=== PATIENT | male | born 1980 | race Caucasian/White ===

== ENCOUNTER 2018-02-01 18:10 | Emergency (ER) | payer BC ==
[2018-02-01] MEDS ORDERED: HYDROmorphone 1 MG/ML Syringe IVPUSH ONE (18:19)
[2018-02-01] MEDS ORDERED: Sodium Chloride 0.9% 10 ML Syringe FLUSH PRN (18:19)
[2018-02-01] MEDS ORDERED: Ondansetron 4 MG/2 ML SDV IVPUSH ONE (18:19)
--- NOTE | 2018-02-01 18:43 | EDM.PDOC ---
ED HPI GENERAL MEDICAL PROBLEM - General Chief Complaint: Trauma Stated Complaint: HORSE BACK RIDING ACCIDENT Time Seen by Provider: 02/01/18 18:12 Source of Information: Reports: Patient History Limitations: Reports: No Limitations - History of Present Illness INITIAL COMMENTS - FREE TEXT/NARRATIVE: 37-year-old male presents for evaluation and treatment of injuries sustained from a horseback riding accident. Patient reports he was riding horse. Estimates he is going about 35-40 miles per hour. Reports that the horse turned suddenly. States that he went down with the horse and the horse landed onto his left leg. He is unsure if he hit his head but he doesn't abrasion to his forehead. Does not believe he lost consciousness. Denies any headaches, epistaxis, loose teeth, neck pain, chest pain, shortness of breath, abdominal pain, syncope, pain in the arms or pelvis. He states he felt lightheaded initially but this is mostly resolved. He reports he was feeling nauseous but has not vomited. Trauma alert minor called upon arrival to the ED. Onset: Today Location: Reports: Lower Extremity, Left Left Lower Leg Pain Score (Numeric/FACES): 10 - Related Data Allergies Allergy/AdvReac Type Severity Reaction Status Date / Time No Known Allergies Allergy Verified 02/01/18 18:19 Home Meds: Home Meds . [No Known Home Meds] 02/01/18 [History] Past Medical History - Past Health History Medical/Surgical History: Denies Medical/Surgical History - Past Surgical History Musculoskeletal Surgical History: Reports: Arthroscopic Knee Social & Family History - Family History Family Medical History: Noncontributory - Tobacco Use Smoking Status *Q: Current Some Day Smoker Years of Tobacco use: 20 Packs/Tins Daily: 0 - Recreational Drug Use Recreational Drug Use: No Review of Systems - Review of Systems Review Of Systems: See Below Nose: Denies: Epistaxis Mouth/Throat: Denies: Loose Teeth Respiratory: Denies: Shortness of Breath Cardiovascular: Denies: Chest Pain GI/Abdominal: Reports: Nausea. Denies: Abdominal Pain, Vomiting Musculoskeletal: Reports: Leg Pain (left, primarilty to the left lwoer leg but radiates into the foot and up into the femur). Denies: Neck Pain, Arm Pain, Back Pain Neurological: Denies: Syncope ED EXAM, GENERAL - Physical Exam Exam: See Below Exam Limited By: No Limitations General Appearance: Alert, WD/WN, Moderate Distress Eye Exam: Bilateral Eye: EOMI, Normal Inspection, PERRL Ears: Normal External Exam, Normal Canal, Hearing Grossly Normal, Normal TMs Nose: Normal Inspection, No Blood Throat/Mouth: Normal Inspection, Normal Lips, Normal Oropharynx, Normal Voice, No Airway Compromise Head: Normocephalic, Other (abrasion to the left forhead about 7cm in diameter) Neck: Normal Inspection, Supple, Non-Tender, Full Range of Motion Respiratory/Chest: No Respiratory Distress, Lungs Clear, Normal Breath Sounds, Chest Non-Tender Cardiovascular: Normal Peripheral Pulses, Regular Rate, Rhythm, No Murmur Peripheral Pulses: 2+: Radial (L), Radial (R), Posterior Tibial (L), Posterior Tibial (R), Dorsalis Pedis (L), Dorsalis Pedis (R) GI/Abdominal: Normal Bowel Sounds, Soft, Non-Tender, No Distention, Pelvis Stable Back Exam: Normal Inspection. No: Vertebral Tenderness Extremities: Normal Inspection, Other (tenderness to the distal left lower leg) Neurological: Alert, Oriented, Normal Cognition Psychiatric: Normal Affect, Normal Mood Skin Exam: Warm, Dry, Normal Color, Wound/Incision (approximately 7cm abrasion to the left forehead) ED TRAUMA PROCEDURES - Splinting Left Lower Extremity Splint Site: lower leg Pre-Procedure NV Status: Normal Post-Procedure NV Status: Normal Splint Material: Other (orthoglass) Splint Design: Posterior Applied & Form Fitted By: Provider, Nurse Provider Post-Splint Application NV Check: NV Status Normal, Good Position Complications: No Course - Vital Signs Last Recorded V/S: Last Vital Signs Temp 97.6 F 02/01/18 18:14 Pulse 89 02/01/18 18:14 Resp 22 H 02/01/18 18:14 BP 133/63 02/01/18 18:14 Pulse Ox 100 02/01/18 18:14 - Orders/Labs/Meds Orders: Active Orders 24 hr Category Date Time Status Peripheral IV Care [RC] . DIRECTED Care 02/01/18 18:19 Active Ankle Min 3V Lt [CR] Stat Exams 02/01/18 18:19 Taken Femur Min 2V Lt [CR] Stat Exams 02/01/18 18:19 Taken Foot 2V Lt [CR] Stat Exams 02/01/18 18:19 Ordered Head wo Cont [CT] Stat Exams 02/01/18 18:19 Taken Tibia Fibula Lt [CR] Stat Exams 02/01/18 18:19 Ordered Peripheral IV Insertion Adult [OM.PC] Routine Oth 02/01/18 18:18 Ordered Meds: Medications Discontinued Medications Generic Name Dose Route Start Last Admin Trade Name Freq PRN Reason Stop Dose Admin Hydromorphone HCl 1 mg 02/01/18 18:19 02/01/18 18:27 Dilaudid IVPUSH 02/01/18 18:20 1 mg ONETIME ONE Administration Hydromorphone HCl 0.5 mg 02/01/18 19:32 02/01/18 19:41 Dilaudid IVPUSH 02/01/18 19:33 0.5 mg ONETIME ONE Administration Ondansetron HCl 4 mg 02/01/18 18:19 02/01/18 18:26 Zofran IVPUSH 02/01/18 18:20 4 mg ONETIME ONE Administration Sodium Chloride 10 ml 02/01/18 18:19 02/01/18 18:26 Saline Flush FLUSH 10 ml ASDIRECTED PRN Administration Keep Vein Open - Radiology Interpretation Free Text/Narrative:: CT of the head without contrast impression per [facility]: No acute findings. Xray of the left femur, tib/fib, ankle and foot shows a nondisplaced comminuted fractures of the left fibula. - Re-Assessments/Exams Free Text/Narrative Re-Assessment/Exam: 02/01/18 20:48 Dr. Campbell has seen the patient and agreed with the workup of this was a trauma alert minor, seen around 18:40. I reviewed the imaging with the patient. We will put him in a posterior slab splint and have him follow-up with orthopedics. I did educate him that he is at risk for compartment syndrome given the crush injury. He was educated on signs to watch for. Rx for Percocet given for instymeds. Discharge instructions as documented. Departure - Departure Time of Disposition: 20:59 Disposition: Home, Self-Care 01 Condition: Fair Clinical Impression: Fibula fracture - Discharge Information *PRESCRIPTION DRUG MONITORING PROGRAM REVIEWED*: No *COPY OF PRESCRIPTION DRUG MONITORING REPORT IN PATIENT ADE: No Instructions: Cast or Splint Care, Adult, [id number], Fibular Ankle Fracture Treated With or Without Immobilization, Adult Referrals: PCP,None [Primary Care Provider] - Alex Loco MD [Physician] - Forms: ED Department Discharge Additional Instructions: Rx for percocoet 5-325 1-2 tabs PO every 4-6 hours prn pain #20 given through instymeds Ice and elevate the lower leg as much as possible. You were given medication the ER that affects your ability to drive and operate machinery. Do not drive or operate machinery within 10 hours of taking prescription narcotic pain. Percocet 1 or 2 tabs every 4-6 hours as needed for pain. Percocet is habit- forming, take as little as needed to control your pain Do not drive or operate within 10 hours of taking Percocet. Wear the splint at all times. Keep covered when around water. Use crutches at all times. Follow-up with Dr. Loco. Call Friday to schedule an appointment with him. Call [phone] to schedule with him. Please return to the ER if your symptoms change or worsen. In particular we would like to see you for sever pain not relieved by pain medication, pallor to the extremity, loss of sensation or any other concerning symptoms. - My Orders Last 24 Hours: My Active Orders 02/01/18 18:18 Peripheral IV Insertion Adult [OM.PC] Routine 02/01/18 18:19 Peripheral IV Care [RC] . DIRECTED Ankle Min 3V Lt [CR] Stat Femur Min 2V Lt [CR] Stat Foot 2V Lt [CR] Stat Head wo Cont [CT] Stat Tibia Fibula Lt [CR] Stat - Assessment/Plan Last 24 Hours: My Active Orders 02/01/18 18:18 Peripheral IV Insertion Adult [OM.PC] Routine 02/01/18 18:19 Peripheral IV Care [RC] . DIRECTED Ankle Min 3V Lt [CR] Stat Femur Min 2V Lt [CR] Stat Foot 2V Lt [CR] Stat Head wo Cont [CT] Stat Tibia Fibula Lt [CR] Stat
[2018-02-01] MEDS ORDERED: HYDROmorphone 0.5 MG/0.5 ML SYRINGE IVPUSH ONE (19:32)
--- NOTE | 2018-02-02 07:30 | CR ---
Left ankle: Four views of the left ankle were obtained. Comparison: No prior study. Fracture is identified within the distal fibular shaft with no significant displacement. Calcifications are seen off the inferior fibula compatible with old injury. Soft tissue swelling is noted. No distal tibial fracture is seen. Impression: 1. Nondisplaced distal fibular shaft fracture. 2. Soft tissue swelling and other incidental findings. Diagnostic code #3
--- NOTE | 2018-02-05 09:15 | CT ---
Head CT Technique: Multiple axial sections through the brain were obtained. Intravenous contrast was not utilized. Comparison: No prior intracranial imaging is available. Findings: Ventricles along with basal cisterns and sulci over the convexities are within normal limits for the patient's age. No abnormal parenchymal densities are seen. No evidence of intracranial hemorrhage. No midline shift or mass effect is seen. Bone window settings were reviewed which show no acute calvarial abnormality. Visualized sinuses are clear. Impression: 1. Nothing acute is seen on noncontrast head CT study. Diagnostic code #1 I agree with preliminary report issued by [facility] ([facility] preliminary report dictated on 02/01/18, 7:54 PM)
--- NOTE | 2018-02-05 09:15 | CR ---
Left femur: AP and lateral views of the left femur were obtained. Comparison: No previous study. No fracture, dislocation or other bony abnormality is seen. Impression: 1. No abnormality is identified on left femur study. Diagnostic code #1
--- NOTE | 2018-02-05 09:15 | CR ---
Left tibia and fibula: AP and lateral views of the left tibia and fibula were obtained. Comparison: No previous study. Fracture identified within the distal shaft of the fibula. Alignment remains close to anatomic. No additional fracture is appreciated. Bony densities noted off the ankle compatible with old injury. Impression: 1. Nondisplaced acute distal shaft fracture involving fibula. 2. Bone densities off the ankle compatible with old injury. Diagnostic code #3
== END 2018-02-01 21:21 | disposition home or self-care (01) ==
LOC: MERGE 18:10 → JD.ED 18:10
DX: S82.832A Other fracture of upper and lower end of left fibula, initial encounter for closed fracture (principal); F17.210 Nicotine dependence, cigarettes, uncomplicated; V80.010A Animal-rider injured by fall from or being thrown from horse in noncollision accident, initial encounter; Y93.52 Activity, horseback riding
CPT/HCPCS: 29515; 70450; 73552; 73590; 73610; 96374; 96375; 96376; 99284; J1170; J2405; J7050; 73620-LT

== ENCOUNTER 2024-06-06 18:57 | Emergency (ER) | payer BC ==
[2024-06-06] MEDS: Famotidine 20 MG Tab PO ONE (20:17)
[2024-06-06 20:21] LABS: BASOPHILS PERCENT AUTO 0.2 % (0.0-1.0); EOSINOPHILS ABSOLUTE AUTO 0.1 K/mm3 (0.0-0.4); EOSINOPHILS PERCENT AUTO 0.4 % (0.0-6.0); HEMATOCRIT 40.8 % (42.0-52.0); HEMOGLOBIN 13.6 gm/dl (14.0-18.0); IMMATURE GRAN ABSOLUTE AUTO 0.04 K/mm3 (0.00-0.05); IMMATURE GRAN PERCENT AUTO 0.3 % (0.0-0.4); LYMPHOCYTES ABSOLUTE AUTO 2.2 K/mm3 (1.0-4.8); MEAN CORPUSCULAR HEMOGLOBIN 30.6 pg (28.0-32.0); MEAN CORPUSCULAR HGB CONC 33.3 g/dl (32.0-36.0); MEAN CORPUSCULAR VOLUME 91.7 fl (83.0-99.0); MEAN PLATELET VOLUME 9.3 fl (9.4-12.4); MONOCYTES ABSOLUTE AUTO 0.8 K/mm3 (0.0-0.8); MONOCYTES PERCENT AUTO 6.4 % (0.0-8.0); NEUTROPHILS ABSOLUTE AUTO 9.9 K/mm3 (1.8-7.7); NEUTROPHILS PERCENT AUTO 75.7 % (41.0-71.0); PLATELET COUNT,PLT 333 K/mm3 (150-400); RED BLOOD CELL COUNT 4.45 M/mm3 (4.52-5.90); WHITE BLOOD CELL COUNT,WBC 13.05 K/mm3 (3.9-11.3)
[2024-06-06] MEDS: Sodium Chloride 0.9% 10 ML Syringe FLUSH PRN (20:25)
[2024-06-06] MEDS: Sodium Chloride 0.9% 1,000 ML IV ONE (20:25)
[2024-06-06] MEDS: Alum Hydrox/Mag Hydrox/Simeth 30 ML, Lidocaine 2% 15 ML PO ONE (20:26)
[2024-06-06 20:42] LABS: ALBUMIN 3.3 g/dl (3.4-5.0); BILIRUBIN TOTAL 0.3 mg/dL (0.2-1.0); CALCIUM 8.5 mg/dL (8.5-10.1); EST CRCL DRUG DOSING (CG) 113.03 mL/min; PROTEIN TOTAL,TP 6.7 g/dl (6.4-8.2)
[2024-06-06 20:50] LABS: APPEARANCE,URINE CLEAR (Clear); BILIRUBIN,URINE NEGATIVE (Negative); COLOR,URINE YELLOW (Yellow); GLUCOSE,URINE NEGATIVE (Negative); KETONES,URINE NEGATIVE (Negative); LEUKOCYTE ESTERASE,URINE NEGATIVE (Negative); NITRITE,URINE NEGATIVE (Negative); OCCULT BLOOD,URINE TRACE-INTACT (Negative); PROTEIN,URINE 1+ (Negative); UROBILINOGEN,URINE 0.2 (0.2-1.0)
[2024-06-06 21:00] LABS: BACTERIA,URINE RARE /hpf (FEW); EPITHELIAL CELLS,URINE NOT SEEN /hpf (0-5); MUCUS,URINE MODERATE /hpf (FEW); RBC,URINE 0-5 /hpf (0-5); WBC,URINE 0-5 /hpf (0-5)
== END 2024-06-07 01:06 | disposition left against medical advice (07) ==
LOC: JD.ED 18:57
DX: R10.13 Epigastric pain (principal); Z79.899 Other long term (current) drug therapy
CPT/HCPCS: 36415; 80053; 81001; 83690; 85025; 96360; 99284; A9270; J7030